=== PATIENT | male | born 1985 | race Caucasian/White ===

== ENCOUNTER 2019-11-29 13:14 | Emergency (ER) | payer OTHER ==
[~2019-11-29] VITALS: Ht 172.7 cm; Wt 128.9 kg
[2019-11-29] MEDS ORDERED: LEVO50TA5 PO (13:24)
[2019-11-29 13:54] LABS: BASO % 0.2 % (0.0-1.0); EOS % 0.3 % (0.0-3.0); HEMATOCRIT 36.1 % (42.0-52.0); HEMOGLOBIN 11.6 g/dl (13.5-17.5); LYMPH # 1.6 10^3/uL (1.5-5.0); LYMPH % 16.9 % (24.0-44.0); MEAN CORPUSCULAR HEMOGLOBIN 27.8 pg (27.0-33.0); MEAN CORPUSCULAR HGB CONC 32.1 g/dl (32.0-36.5); MEAN CORPUSCULAR VOLUME 86.4 fl (80.0-96.0); MONO # 0.5 10^3/uL (0.0-0.8); MONO % 5.5 % (0.0-5.0); NEUTROPHILS # 7.4 10^3/uL (1.5-8.5); NEUTROPHILS % 76.4 % (36.0-66.0); PLATELET COUNT, AUTOMATED 235 10^3/uL (150-450); RED BLOOD COUNT 4.18 10^6/uL (4.30-6.10); WHITE BLOOD COUNT 9.6 10^3/uL (4.0-10.0)
[2019-11-29 14:27] LABS: ACETAMINOPHEN LEVEL < 2.0 UG/ML (10.0-30.0); ALBUMIN 3.7 GM/DL (3.2-5.2); ALT/SGPT 70 U/L (12-78); BILIRUBIN,DIRECT 0.1 MG/DL (0.0-0.2); BILIRUBIN,TOTAL 0.3 MG/DL (0.2-1.0); BLOOD UREA NITROGEN 20 MG/DL (7-18); CALCIUM LEVEL 8.9 MG/DL (8.5-10.1); CARBON DIOXIDE LEVEL 27 MEQ/L (21-32); CHLORIDE LEVEL 106 MEQ/L (98-107); CPK CREATINE PHOSPHOKINASE 146 U/L (39-308); CREATININE FOR GFR 0.92 MG/DL (0.70-1.30); ETHYL ALCOHOL (ETHANOL) < 0.003 % (0.000-0.010); GLOMERULAR FILTRATION RATE > 60.0 (>60); GLUCOSE, FASTING 145 MG/DL (70-100); POTASSIUM SERUM 4.2 MEQ/L (3.5-5.1); SALICYLATE LEVEL < 1.7 MG/DL (5.0-30.0); SODIUM LEVEL 141 MEQ/L (136-145); THYROID STIMULATING HORMONE 0.855 uIU/ML (0.358-3.740); TOTAL PROTEIN 6.9 GM/DL (6.4-8.2)
--- NOTE | 2019-11-29 15:08 | ECGEPIP ---
[facility] - ED Test Date: 2019-11-29 Pat Name: LAKESHIA LEE Department: Room: - Gender: Male [employer]: nessa : 1985 Requested By: Siria Kwong Order Number: [id number] Reading MD: Siria Kwong Measurements Intervals [place] Rate: 89 P: 42 NV: 141 QRS: 50 QRSD: 94 T: 16 QT: 337 QTc: 410 Interpretive Statements SINUS RHYTHM NO PRIOR Electronically Signed on 11-29-2019 15:07:54 EST by Siria Kwong
[2019-11-29 15:17] LABS: AMPHETAMINES LEVEL URINE NEGATIVE (NEGATIVE); BARBITURATES URINE NEGATIVE (NEGATIVE); BENZODIAZEPINES URINE NEGATIVE (NEGATIVE); CANNABINOIDS URINE NEGATIVE (NEGATIVE); COCAINE METABOLITE URINE NEGATIVE (NEGATIVE); METHADONE URINE NEGATIVE (NEGATIVE); OPIATES URINE NEGATIVE (NEGATIVE); PHENCYCLIDINE URINE NEGATIVE (NEGATIVE)
--- NOTE | 2019-11-29 16:58 | REP ---
Abdomen series: Three views. History: Abdomen pain. Findings: Upright chest radiograph is normal. There is no evidence of infiltrate or free subdiaphragmatic air. Monitoring electrodes are seen. Supine and erect views of the abdomen demonstrate a normal bowel gas pattern. Psoas margins and flank stripes are intact. No mass organomegaly is seen. Impression: Negative abdominal series. Electronically Signed by Shaheen Bernardo MD 11/29/2019 04:49 P
[2019-11-29 17:10] VITALS: BP 160/76
== END 2019-11-29 17:13 | disposition home or self-care (01) ==
LOC: EDBD 13:14 → M ED 13:14
DX: Z04.89 Encounter for examination and observation for other specified reasons (principal); Z88.0 Allergy status to penicillin; Z79.899 Other long term (current) drug therapy
CPT/HCPCS: 36415; 74021; 80048; 80076; 80307; 82550; 84443; 85025; 93005; 93041; 94760; 99285; G0480